=== PATIENT | male | born 1995 | race Caucasian/White ===

== ENCOUNTER → 2018-06-14 | Outpatient (CLI) | payer OTHER | LOC: COL.PUL 13:00 | DX: R06.02 Shortness of breath (principal) | CPT/HCPCS: J7674 ==

== ENCOUNTER → 2018-07-04 | Outpatient (CLI) | payer OTHER | LOC: COL.VAS 08:00 | DX: R06.02 Shortness of breath (principal); R55 Syncope and collapse ==

== ENCOUNTER → 2018-09-26 | Outpatient (CLI) | payer OTHER | LOC: COL.RAD 08:00 | DX: M25.511 Pain in right shoulder (principal) | CPT/HCPCS: J3301; Q9967 ==